=== PATIENT | male | born 1975 | race Caucasian/White ===

== ENCOUNTER 2019-02-12 18:59 | Emergency (ER) | payer OTHER ==
[~2019-02-12] VITALS: Ht 182.9 cm; Wt 102.1 kg
[2019-02-12 19:32] LABS: HEMATOCRIT 46.7 % (42.0-52.0); HEMOGLOBIN 16.2 gm/dL (14.0-18.0); MCH 30.2 pg (26.0-34.0); MCHC 34.7 g/dL (28.0-37.0); MPV 7.6 fl. (7.2-11.1); NUCLEATED RBCS 0 /100WBC; PLATELET COUNT* 287 thou/uL (150-400); RBC 5.37 mil/uL (4.50-6.00); RDW-CV 13.5 % (10.5-14.5); WBC 21.4 thou/uL (4.0-11.0)
[2019-02-12 19:43] LABS: CALCIUM 9.4 mg/dL (8.5-10.1); POTASSIUM 4.3 mmol/L (3.5-5.1)
[2019-02-12 19:46] LABS: INFLUENZA A ANTIGEN Negative (Negative); INFLUENZA B ANTIGEN Negative (Negative)
[2019-02-12 19:47] LABS: ALBUMIN 4.2 g/dL (3.4-5.0); MAGNESIUM 1.5 mg/dL (1.8-2.4); TOTAL BILIRUBIN 0.3 mg/dL (<0.1-1.0); TOTAL PROTEIN 7.9 g/dL (6.4-8.2)
[2019-02-12 20:06] LABS: ABSOLUTE EOSINOPHILS 0.2 thou/uL (0.0-0.7); ABSOLUTE LYMPHOCYTES 1.3 thou/uL (0.8-5.3); ABSOLUTE MONOCYTES 1.5 thou/uL (0.0-1.2); ABSOLUTE NEUTROPHILS 18.4 thou/uL (1.6-8.1)
[2019-02-12 20:07] LABS: PLATELET ESTIMATE ADEQUATE
[2019-02-12] MEDS ORDERED: LORCET 5-325 M1 EACH PO (22:27)
[2019-02-12] MEDS ORDERED: ZOFRAN ODT4 MG PO (22:27)
[2019-02-12 22:47] VITALS: BP 137/73
== END 2019-02-12 22:49 | disposition home or self-care (01) ==
LOC: M.ERS 18:59
PROVIDERS: Emergency Medicine
DX: R11.2 Nausea with vomiting, unspecified (principal); R19.7 Diarrhea, unspecified; R10.13 Epigastric pain; F17.210 Nicotine dependence, cigarettes, uncomplicated

== ENCOUNTER 2019-02-15 10:41 | Emergency (ER) | payer OTHER ==
[~2019-02-15] VITALS: Ht 182.9 cm; Wt 90.7 kg
[~2019-02-15 10:41] MED LIST: LORCET 5-325 M1 EACH PO; ZOFRAN ODT4 MG PO
[2019-02-15 11:06] LABS: ABSOLUTE LYMPHOCYTES 0.7 thou/uL (0.8-5.3); ABSOLUTE MONOCYTES 1.8 thou/uL (0.0-1.2); ABSOLUTE NEUTROPHILS 10.2 thou/uL (1.6-8.1); BASOPHILS 0.4 %; EOSINOPHILS 0.1 %; HEMATOCRIT 43.6 % (42.0-52.0); HEMOGLOBIN 15.1 gm/dL (14.0-18.0); LYMPHOCYTES 5.4 %; MCHC 34.6 g/dL (28.0-37.0); MCV 86.7 fL (80.0-100.0); MONOCYTES 13.9 %; MPV 7.8 fl. (7.2-11.1); NUCLEATED RBCS 0 /100WBC; PLATELET COUNT* 249 thou/uL (150-400); POLYS 80.2 %; RBC 5.03 mil/uL (4.50-6.00); RDW-CV 13.3 % (10.5-14.5); WBC 12.7 thou/uL (4.0-11.0)
[2019-02-15 11:13] LABS: CALCIUM 9.4 mg/dL (8.5-10.1); CREATININE 0.8 mg/dL (0.6-1.3); POTASSIUM 3.9 mmol/L (3.5-5.1)
[2019-02-15 11:17] LABS: ALBUMIN 3.4 g/dL (3.4-5.0); TOTAL BILIRUBIN 0.4 mg/dL (<0.1-1.0); TOTAL PROTEIN 7.4 g/dL (6.4-8.2)
[2019-02-15] MEDS ORDERED: ZPAK PO (11:53)
[2019-02-15] MEDS ORDERED: PROAIR HFA8.5 GM INH (11:53)
[2019-02-15] MEDS ORDERED: MEDROLDOSEPACK PO (11:53)
[2019-02-15 12:10] VITALS: BP 131/77
[2019-02-15 12:35] LABS: INFLUENZA A ANTIGEN Negative (Negative); INFLUENZA B ANTIGEN Negative (Negative)
--- NOTE | 2019-02-16 09:59 | EKG ---
[place] [address] ELECTROCARDIOGRAM REPORT Name: [facility]AVERS [id number]: 02/15/19 Attend Phys: Discharge: 02/15/19 Date of : 79 Report #: [id number] THIS REPORT FOR: //name// [facility] ED Test Date: 2019-02-15 Test Time: 10:54:22 Pat Name: JO BEAVERS Department: Room: Gender: M [employer]: : 1975 Requested By: Jaz Pham Order Number: [id number] MD: Jun Kline Measurements Intervals [place] Rate: 107 P: 72 UT: 128 QRS: 44 QRSD: 90 T: 71 QT: 325 QTc: 434 Interpretive Statements Sinus tachycardia RSR' in V1 or V2, probably normal variant No previous ECG available for comparison Electronically Signed On 02-16-2019 9:59:40 CDT by Jun Kline [email or web address] <ELECTRONICALLY SIGNED> By: Jun Kline MD, [facility] 02/16/19 0959 [id number] [id number] Jun Kline MD, FACC /EPI
== END 2019-02-15 12:11 | disposition home or self-care (01) ==
LOC: M.ERS 10:41
PROVIDERS: Physician Assistant
DX: J20.9 Acute bronchitis, unspecified (principal); F17.210 Nicotine dependence, cigarettes, uncomplicated

== ENCOUNTER 2020-07-06 12:24 | Emergency (ER) | payer OTHER ==
[~2020-07-06] VITALS: Ht 182.9 cm; Wt 90.7 kg
[~2020-07-06 12:24] MED LIST changes: +MEDROLDOSEPACK PO; +PROAIR HFA8.5 GM INH; +ZPAK PO
[2020-07-06] MEDS ORDERED: CENTANY30 GM TOP (12:52)
[2020-07-06] MEDS ORDERED: BACTRIM DS TAB1 EACH PO (12:52)
[2020-07-06] MEDS ORDERED: KEFLEX500 M1 PO (12:52)
[2020-07-06 13:00] VITALS: BP 162/107
== END 2020-07-06 13:00 | disposition home or self-care (01) ==
LOC: M.ERS 12:24
DX: S00.511A Abrasion of lip, initial encounter (principal); S00.81XA Abrasion of other part of head, initial encounter; L08.9 Local infection of the skin and subcutaneous tissue, unspecified; W18.39XA Other fall on same level, initial encounter; Y93.89 Activity, other specified; Y92.89 Other specified places as the place of occurrence of the external cause; Y99.8 Other external cause status